=== PATIENT | female | born 1980 | race Caucasian/White ===

== ENCOUNTER 2016-12-13 11:44 | Emergency (ER) | payer BC ==
[~2016-12-13] VITALS: Ht 165.1 cm; Wt 52.0 kg
[2016-12-13] MEDS ORDERED: SODIUM CHLORIDE 0.9% 1,000ML IVBOLUS ONE (12:00)
[2016-12-13] MEDS ORDERED: ONDANSETRON 2MG/ML, 2ML IVPush ONE (12:00)
[2016-12-13] MEDS ORDERED: HYDROmorphone 1 MG/ML, 1ML ONE (12:06)
[2016-12-13] MEDS ORDERED: ONDANSETRON 2MG/ML, 2ML ONE (12:07)
[2016-12-13] MEDS: HYDROmorphone 1 MG/ML, 1ML IVPush PRN ×2 (12:11→13:06)
[2016-12-13] MEDS ORDERED: SODIUM CHLORIDE FLUSH 10ML SYR IVF ONE (13:00)
[2016-12-13 13:10] LABS: HEMATOCRIT 44.9 % (34.6-47.8); HEMOGLOBIN 14.7 g/dL (11.7-16.4); WHITE BLOOD COUNT 23.2 x10^3/uL (3.4-10)
[2016-12-13 13:20] LABS: ASPARTATE AMINO TRANSFERASE 9 U/L (15-37); BLOOD UREA NITROGEN 9 mg/dL (7-18)
[2016-12-13 15:24] VITALS: BP 132/62
== END 2016-12-13 15:26 | disposition home or self-care (01) ==
LOC: ED 15:00
DX: R10.13 Epigastric pain (principal); R11.2 Nausea with vomiting, unspecified; R19.7 Diarrhea, unspecified
CPT/HCPCS: 36415; 76700; 80053; 81001; 83690; 84703; 85025; 87086; 93005; 96361; 96374; 96375; 96376; 99285; J1170; J2405; J7030